=== PATIENT | female | born 1950 | race Caucasian/White ===

== ENCOUNTER → 2017-06-27 | Outpatient (CLI) | payer MEDICARE ==
[~2017-06-27] MED LIST: ACEASPCAF; ADVIL; ADVIL LIQUI-GE200 MG PO; ALLERCLEAR D-11 EACH PO; ALPR.25; BLACK COHASH; Black Cohosh40 MG PO; CALCAVITD PO; CALCIUM; CHARCOAL; DIPATR PO; DIPH50; GLUC500 PO; GLUCOSAMINE; KETO15TC TOP; L-LYSINE; L-LYSINE500 MG PO; MULVITMIND; PEPTO-BISMOL; POLY17UD PO; PROP30DR; Pepto-Bism525 MG/15 PO; Pepto-Bismol262 M1 PO; Super B With V1 EACH PO; UBID10; VITAMIN; VITAMIN C
== END | disposition home or self-care (01) ==
LOC: LAB EV 12:51
DX: N39.0 Urinary tract infection, site not specified (principal)
CPT/HCPCS: 87077; 87086; 87186

== ENCOUNTER 2019-03-21 10:06 | Emergency (ER) | payer MEDICARE ==
[~2019-03-21] VITALS: Ht 154.9 cm; Wt 53.1 kg
== END 2019-03-21 12:14 | disposition home or self-care (01) ==
LOC: ER 10:06
DX: S61.210A Laceration without foreign body of right index finger without damage to nail, initial encounter (principal); W26.0XXA Contact with knife, initial encounter
CPT/HCPCS: 12001; 90471; 90714; 99282-25

== ENCOUNTER → 2022-01-09 | Outpatient (CLI) | payer MEDICARE ==
[2022-01-10 13:18] LABS: Stool Occult Bld Immuno 1 Negative (NEGATIVE)
== END | disposition home or self-care (01) ==
LOC: LAB SHORT 21:00 → LAB 21:00
PROVIDERS: Internal Medicine Gastroenterology
DX: Z09 Encounter for follow-up examination after completed treatment for conditions other than malignant neoplasm (principal); Z86.010 Personal history of colon polyps
CPT/HCPCS: 82274

== ENCOUNTER → 2022-01-15 | Outpatient (CLI) | payer MEDICARE ==
[2022-01-17 10:57] LABS: Stool Occult Bld Immuno 1 Negative (NEGATIVE)
== END | disposition home or self-care (01) ==
LOC: LAB SHORT 08:45 → LAB 08:45
PROVIDERS: Internal Medicine Gastroenterology
DX: Z09 Encounter for follow-up examination after completed treatment for conditions other than malignant neoplasm (principal); Z86.010 Personal history of colon polyps
CPT/HCPCS: G0328